=== PATIENT | male | born 1990 | race Caucasian/White ===

== ENCOUNTER 2019-02-17 12:43 | Emergency (ER) | payer SELFPAY ==
[~2019-02-17] VITALS: Ht 177.8 cm; Wt 59.1 kg
[~2019-02-17 12:43] MED LIST: CLEOCIN HC150 MG/CAP PO; NAPROSYN500 MG PO; NO HOME MEDICATIONS; NORCO 325 MG-51 TAB PO; PERCOCET 325 MG1 TA2 PO; ZOFRAN ODT4 MG PO; ZOFRAN ODT8 MG PO
[2019-02-17 12:57] VITALS: TEMP 98.3
[2019-02-17] MEDS ORDERED: MULTI VITAMINS1 TAB PO (13:12)
[2019-02-17] MEDS ORDERED: MOTRIN 200200 MG/TAB PO (13:12)
[2019-02-17] MEDS ORDERED: BENADRYL50 MG PO (13:13)
[2019-02-17 13:45] LABS: COLLECTION METHOD CLEAN CATCH
[2019-02-17 14:04] LABS: MUCOUS Present /lpf; PH 5 (5-8); SQUAMOUS EPITHELIAL 0-2 /hpf; URINE APPEARANCE Hazy; URINE BACTERIA None Seen /hpf; URINE BILIRUBIN Negative (NEGATIVE); URINE BLOOD Negative (NEGATIVE); URINE COLOR Amber; URINE GLUCOSE Negative (NEGATIVE); URINE KETONE 1+ (NEGATIVE); URINE LEUKOCYTE ESTERASE Negative (NEGATIVE); URINE NITRATE Negative (NEGATIVE); URINE PROTEIN(semi-quant) 2+ (NEGATIVE); URINE RBC 0-2 /hpf
[2019-02-17 14:05] LABS: BASO # 0.1 (0.0-0.2); BASO % 0.9 % (0.0-2.0); EOS % 0.4 % (0-4.0); GRAN % 56.7 % (42.2-75.2); HEMOGLOBIN 15.8 g/dl (13.5-18.0); LYMPH # 1.7 (1.2-3.4); MEAN CELL VOLUME 91 fl (80.0-100.0); MEAN CORPUSCULAR HEMOGLOBIN 31 pg (27.0-31.0); MEAN CORPUSCULAR HGB CONC 34 g/dl (33.0-37.0); MEAN PLATELET VOLUME 10.2 fl (7.4-10.4); MONO # 0.5 (0.1-0.6); MONO % 9.8 % (1.7-9.3); PLATELET COUNT 255 K/mm3 (130-400); RED BLOOD COUNT 5.07 M/mm3 (4.20-5.60); REDCELL DISTRIBUTION WIDTH-CV 12.8 % (11.5-14.5)
[2019-02-17 14:18] LABS: ALANINE AMINOTRANSFERASE 26 U/L (21-72); ALBUMIN 4.8 gm/dL (3.5-5.0); ALKALINE PHOSPHATASE 66 U/L (50-136); ANION GAP 11 mmol/L (7-16); AST,SGOT 32 U/L (15-37); BLOOD UREA NITROGEN 7 mg/dL (9-20); CALCIUM 9.5 mg/dL (8.4-10.2); CARBON DIOXIDE 25 mmol/L (22-30); CHLORIDE 104 mmol/L (98-107); CREATININE, serum 0.96 (0.66-1.25); GLUCOSE 102 mg/dL (74-106); SODIUM 140 mmol/L (137-145); TOTAL PROTEIN 7.9 gm/dL (6.4-8.2)
[2019-02-17 14:25] LABS: ACETAMINOPHEN < 10 ug/mL (10-30); ALCOHOL(ethanol),MEDICAL < 10 mg/dL; SALICYLATE < 1.0 mg/dL
[2019-02-17 14:30] LABS: TRICYCLIC ANTIDEPRESS URINE NEGATIVE
[2019-02-17] MEDS ORDERED: ZITHROMAX Z PA250 MG PO (16:33)
[2019-02-17 16:36] VITALS: BP 127/80; PULSE 62
== END 2019-02-17 16:45 | disposition home or self-care (01) ==
LOC: COL.ER 12:43
PROVIDERS: Physician Assistant
DX: R05 Cough (principal); F32.9 Major depressive disorder, single episode, unspecified; Z88.0 Allergy status to penicillin

== ENCOUNTER 2019-05-11 23:00 | Emergency (ER) | payer SELFPAY ==
[~2019-05-11] VITALS: Ht 175.3 cm; Wt 59.1 kg
[~2019-05-11 23:00] MED LIST changes: +BENADRYL50 MG PO; +MOTRIN 200200 MG/TAB PO; +MULTI VITAMINS1 TAB PO; +ZITHROMAX Z PA250 MG PO
[2019-05-11 23:08] VITALS: BP 152/92; TEMP 97.4
[2019-05-12 01:57] VITALS: PULSE 96
== END 2019-05-12 01:57 | disposition home or self-care (01) ==
LOC: COL.ER 23:00
DX: F41.9 Anxiety disorder, unspecified (principal); F43.10 Post-traumatic stress disorder, unspecified; F31.9 Bipolar disorder, unspecified; G47.00 Insomnia, unspecified; Z79.1 Long term (current) use of non-steroidal anti-inflammatories (NSAID); Z88.0 Allergy status to penicillin

== ENCOUNTER 2020-07-01 14:50 | Emergency (ER) | payer MEDICAID ==
[2020-07-01] MEDS ORDERED: CLEOCIN HCL300 MG PO (22:00)
== END 2020-07-01 15:40 | disposition left against medical advice (07) ==
LOC: COL.ER 14:50
DX: R69 Illness, unspecified (principal)

== ENCOUNTER 2020-07-01 21:25 | Emergency (ER) | payer MEDICAID ==
[~2020-07-01] VITALS: Ht 177.8 cm; Wt 59.1 kg
[2020-07-01 21:50] VITALS: BP 121/67; TEMP 98.4
[2020-07-01] MEDS ORDERED: CLEOCIN HCL300 MG PO (22:00)
[2020-07-01 22:18] VITALS: PULSE 56
== END 2020-07-01 22:20 | disposition home or self-care (01) ==
LOC: COL.ER 21:25
DX: S02.5XXA Fracture of tooth (traumatic), initial encounter for closed fracture (principal); F17.200 Nicotine dependence, unspecified, uncomplicated; Z88.0 Allergy status to penicillin; X58.XXXA Exposure to other specified factors, initial encounter

== ENCOUNTER 2020-07-31 02:18 | Emergency (ER) | payer MEDICAID ==
[~2020-07-31] VITALS: Ht 177.8 cm; Wt 61.4 kg
[~2020-07-31 02:18] MED LIST changes: +CLEOCIN HCL300 MG PO
[2020-07-31 02:21] VITALS: TEMP 97.8
[2020-07-31] MEDS ORDERED: CLEOCIN HCL300 MG PO (02:33)
[2020-07-31 03:04] VITALS: BP 142/70; PULSE 66
== END 2020-07-31 03:04 | disposition home or self-care (01) ==
LOC: COL.ER 02:18
DX: S02.5XXA Fracture of tooth (traumatic), initial encounter for closed fracture (principal); K04.7 Periapical abscess without sinus; X58.XXXA Exposure to other specified factors, initial encounter

== ENCOUNTER 2022-12-19 21:35 | Emergency (ER) | payer SELFPAY ==
[~2022-12-19] VITALS: Ht 177.8 cm; Wt 65.9 kg
[2022-12-19 21:50] VITALS: TEMP 98.5
[2022-12-19 22:15] LABS: COLLECTION METHOD CLEAN CATCH
[2022-12-19 22:22] LABS: BASO # 0.1 K/mm3 (0.0-0.2); EOS # 0.1 K/mm3 (0.0-0.7); EOS % 1.2 % (0.0-4.0); GRAN # 2.9 K/mm3 (1.4-6.5); GRAN % 43.7 % (42.2-75.2); HEMATOCRIT 46.3 % (42.0-52.0); HEMOGLOBIN 15.5 g/dl (13.5-18.0); LYMPH # 2.9 K/mm3 (1.2-3.4); LYMPH % 43.9 % (20.0-51.0); MEAN CELL VOLUME 96 fl (80.0-100.0); MEAN CORPUSCULAR HEMOGLOBIN 32 pg (27-31); MEAN CORPUSCULAR HGB CONC 34 g/dl (33.0-37.0); MEAN PLATELET VOLUME 9.6 fl (7.4-10.4); MONO # 0.7 K/mm3 (0.1-0.6); MONO % 10.1 % (1.7-9.3); PLATELET COUNT 284 K/mm3 (130-400); RED BLOOD COUNT 4.81 M/mm3 (4.20-5.60)
[2022-12-19 22:35] LABS: ACETAMINOPHEN < 1.0 ug/mL (10-30); ALANINE AMINOTRANSFERASE 25 U/L (0-55); ALBUMIN 4.4 gm/dL (3.5-5.0); ALCOHOL(ethanol),MEDICAL 155 mg/dL (0-10); ALKALINE PHOSPHATASE 64 U/L (40-150); ANION GAP 14 mmol/L (7-16); AST,SGOT 31 U/L (5-34); BILIRUBIN,TOTAL 0.5 mg/dL (0.2-1.2); BLOOD UREA NITROGEN 10 mg/dL (9-21); CALCIUM 9.4 mg/dL (8.4-10.2); CARBON DIOXIDE 23 mmol/L (22-29); CHLORIDE 105 mmol/L (98-107); CREATININE, serum 1.02 mg/dL (0.72-1.25); GLUCOSE 111 mg/dL (70-99); POTASSIUM 3.8 mmol/L (3.5-4.5); SALICYLATE < 5.0 mg/dL (15.0-30.0); SODIUM 142 mmol/L (136-145); TOTAL PROTEIN 7.7 gm/dL (6.2-8.1)
[2022-12-19 22:37] LABS: TRICYCLIC ANTIDEPRESS URINE NEGATIVE
[2022-12-19 22:39] LABS: URINE APPEARANCE Clear (CLEAR/HAZY); URINE COLOR Yellow (YELLOW); URINE GLUCOSE Negative (NEGATIVE); URINE PROTEIN(semi-quant) Negative (NEGATIVE)
[2022-12-19 22:40] LABS: SQUAMOUS EPITHELIAL 0-2 /hpf (0-10); URINE BACTERIA None Seen /hpf (NONE SEEN); URINE BLOOD Negative (NEGATIVE); URINE KETONE TRACE (NEGATIVE); URINE NITRATE Negative (NEGATIVE); URINE RBC 0-2 /hpf (0-2); URINE UROBILINOGEN 0.2 E.U/dL (0.2-1.0)
[2022-12-20 04:48] VITALS: BP 141/92; PULSE 62
== END 2022-12-20 04:48 | disposition home or self-care (01) ==
LOC: COL.ER 21:35
PROVIDERS: Nurse Practitioner Primary Care
DX: R45.851 Suicidal ideations (principal); F10.129 Alcohol abuse with intoxication, unspecified; Y90.4 Blood alcohol level of 80-99 mg/100 ml